=== PATIENT | female | born 1955 | race Caucasian/White ===

== ENCOUNTER 2023-07-15 15:23 | Inpatient (IN) ==
[2023-07-15 16:13] LABS: Basophils # (auto) 0.07 K/uL (0.00-0.20); Basophils % (auto) 0.6 %; Eosinophils # (auto) 0.02 K/uL (0.00-0.50); Eosinophils % (auto) 0.2 %; Hematocrit (blood only) 43.1 % (37.0-47.0); Hemoglobin 12.9 g/dl (12.0-16.0); Immature Granulocytes # (auto) 0.33 K/uL (0.01-0.20); Immature Granulocytes % (auto) 2.8 %; Lymphocytes # (auto) 1.37 K/uL (1.20-3.40); Lymphocytes % (auto) 11.6 %; Mean Corpuscular Hemoglobin 29.1 pg (25.0-34.0); Mean Corpuscular Hgb Conc 29.9 g/dL (32.0-36.0); Mean Corpuscular Volume 97.3 fL (80.0-100.0); Mean Platelet Volume 9.1 fL (9.4-12.4); Monocytes # (auto) 0.76 K/uL (0.11-0.59); Monocytes % (auto) 6.5 %; Neutrophils # (auto) 9.22 K/uL (1.40-6.50); Neutrophils % (auto) 78.3 %; Platelet Count 305 K/uL (130-400); RDW Coefficient of Variation 18.8 % (11.5-14.5); RDW Standard Deviation 68.5 fL (36.4-46.3); Red Blood Count 4.43 M/uL (4.20-5.40); White Blood Count 11.77 K/ul (4.8-10.8)
[2023-07-15 16:18] LABS: Albumin Globulin Ratio 1.3 (0.9-2); Albumin Level 3.5 gm/dl (3.4-5.0); BUN Creatinine Ratio 23.9 (10-20); Bilirubin,Total 0.2 mg/dl (0.2-1.0); Calcium 8.5 mg/dl (8.6-10.3); Creatinine Clr Calc Pharmacy 20.6 ml/min; Est GFR (African American) 25.7 ml/min; Est GFR (Non-African American) 22.2 ml/min; Globulin 2.6 gm/dl (2.5-4.0); Total Protein 6.1 gm/dl (6.0-8.3)
--- NOTE | 2023-07-15 16:18 | XRay Report ---
SINGLE VIEW CHEST CLINICAL HISTORY: Cough FINDINGS: An AP, portable, upright chest radiograph is compared to study dated 11/26/2022. Correlation is made with chest CT dated 11/21/2022. The hiatal hernia is noted. The patient is status post midlin e sternotomy and cardiac valve surgery. The heart is enlarged noting atherosclerotic calcification of the thoracic aorta. The pulmonary vasculature is noncongested. There is mild bibasilar scarring/atel ectasis. The lungs and pleural spaces are otherwise clear. No pneumothorax is seen. The skeletal stru ctures are osteopenic. The bony thorax is grossly intact. A right shoulder arthroplasty is in place. IMPRESSION: 1. Cardiomegaly with no active disease in the chest. 2. Hiatal hernia. ACT 112: Negative or not required by law. Electronically signed by: Nathan Moreau M.D. 07/15/2023 4:16 PM
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
[2023-07-15] MEDS: DEXTROSE 50% 50 ML SYRINGE IV STA (16:32)
[2023-07-15] MEDS: INSULIN HUMAN REGULAR PER UNIT 10 UNITS in SYRINGE 9.9 ML IV STA (16:33)
[2023-07-15] MEDS: STAT IV/IM STA (16:33)
[2023-07-15] MEDS: NovoLIN-R INSULIN PER UNIT CHARGE ONE (16:33)
[2023-07-15 16:51] LABS: INR 2.6 (0.9-1.1); Partial Thromboplastin Ratio 1.2; Partial Thromboplastin Time 33 Seconds (21-31); Prothrombin Time 27.3 Seconds (9.0-12.0)
--- NOTE | 2023-07-15 16:58 | CT Scan Report ---
CT OF THE HEAD WITHOUT CONTRAST CLINICAL HISTORY: Altered mental status. COMPARISON STUDY: Head CT December 21, 2022. TECHNIQUE: Helical axial images of the head were obtained without IV contrast. Automated exposure con trol was utilized for the study. A dose lowering technique was utilized adhering to the principles o f ALARA. FINDINGS: No acute intracranial hemorrhage, midline shift or mass effect is present. Extensive white matter hypodensities are similar to prior head CT and favor small vessel disease. The ventricular sys tem is unremarkable. The basal cisterns are patent. No extra-axial collections are present. There are no findings to suggest acute dural sinus thrombosis or acute territorial infarct. There are no duc rial fractures. There is mild ethmoid sinus mucosal thickening. IMPRESSION: No acute intracranial findings. No change in appearance of the brain. ACT 112: Negative or not required by law. Electronically signed by: Den Monzon M.D. 07/15/2023 4:57 PM
[2023-07-15] MEDS: CALCIUM GLUCONATE 10% 1,000 MG in SODIUM CHLOR 0.9% MINI-B 50 ML IV ONE (16:59)
[2023-07-15] MEDS: CALCIUM GLUCONATE 1000 MG/60 ML NSS IV ONE (17:01)
--- NOTE | 2023-07-15 17:05 | CT Scan Report ---
CT OF THE ABDOMEN AND PELVIS WITHOUT CONTRAST CLINICAL HISTORY: Acute kidney injury. COMPARISON STUDY: CT of the abdomen and pelvis September 30, 2022. TECHNIQUE: Axial images of the abdomen and pelvis were obtained without IV contrast. Images were revi ewed in the axial, sagittal, and coronal planes. Automated exposure control was utilized for the rimma dy. A dose lowering technique was utilized adhering to the principles of ALARA. FINDINGS: Lung bases are unremarkable. A large hiatal hernia with partially intrathoracic stomach is partially imaged on this exam. No pneumatosis, free air or portal venous gas is present. There is a 3 mm left renal calculus. No ureteral calculi are present. There is no hydronephrosis. Evaluation of t he remainder of the abdomen and pelvis is suboptimal on this unenhanced exam. Liver, spleen, adrenal glands and pancreas are unremarkable. There is no biliary or pancreatic ductal dilatation. No peripan creatic or pericholecystic stranding is present. There is no evidence for a bowel obstruction. No lym phadenopathy is present. There are no fluid collections. There is a mild compression fracture of the inferior endplate of L1. This is new since CT of October 02, 2022 but probably chronic. IMPRESSION: 1. 3 mm nonobstructing left renal calculus. No ureteral calculi. No hydronephrosis. 2. No acute process within the abdomen or pelvis on unenhanced exam. No bowel obstruction. 3. Mild L1 compression fracture. This is new since CT of October 02, 2022 but probably chronic. ACT 112: Negative or not required by law. Electronically signed by: Den Monzon M.D. 07/15/2023 5:04 PM
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
[2023-07-15 18:08] LABS: Appearance Urine Cloudy (Clear); Bacteria Urine Automated Negative (Negative); Bilirubin Urine Negative (Negative); Blood Urine Negative (Negative); Color Urine Yellow; Epithelial Cell Urine Auto >30 /lpf (0-5); Glucose Urine UA 3+ (Negative); Ketones Urine Negative (Negative); Leukocyte Esterase Urine 2+ (Negative); Nitrite Urine Negative (Negative); Protein Urine Negative (Negative); RBC Urine Automated 0-4 /hpf (0-4); Specific Gravity Urine 1.015 (1.000-1.030); Urobilinogen Urine Negative (Negative)
[2023-07-15] MEDS: SODIUM CHLORIDE 0.9% 1,000 ML IV SCH (18:54)
[2023-07-15] MEDS: LACTATED RINGER'S 1,000 ML IV SCH (18:55)
[2023-07-15 19:06] LABS: Magnesium 2.6 mg/dl (1.7-2.4)
[2023-07-15] MEDS ORDERED: DAPTOmycin 200 MG in SYRINGE 0 ML IV SCH (19:45)
[2023-07-15 19:56] LABS: Calcium 8.9 mg/dl (8.6-10.3); Creatinine Clr Calc Pharmacy 22.4 ml/min; Est GFR (African American) 28.5 ml/min; Est GFR (Non-African American) 24.6 ml/min; Potassium 5.8 mmol/L (3.5-5.1)
[2023-07-15] MEDS: DAPTOmycin 200 MG in SYRINGE 0 ML IV SCH (20:17)
[2023-07-15] MEDS ORDERED: ACETAMINOPHEN 325 MG TAB PO PRN (21:27)
[2023-07-15] MEDS ORDERED: GLUCOSE 10 TAB/TUBE PO PRN (21:27)
[2023-07-15] MEDS ORDERED: GLUCOSE 40% GEL 15 GM TUBE PO PRN (21:27)
[2023-07-15] MEDS ORDERED: GLUCAGON FOR INJ 1 MG VIAL SQ PRN (21:27)
[2023-07-15] MEDS ORDERED: ONDANSETRON INJ 2 MG/ML 2 ML VIAL IV PRN (21:27)
[2023-07-15] MEDS ORDERED: DEXTROSE 50% 50 ML SYRINGE IV PRN (21:27)
[2023-07-15] MEDS: INSULIN ASPART PER UNIT CHARGE SC SCH (22:34)
[2023-07-15] MEDS: METOPROLOL SUCC 50MG EXT REL TAB PO SCH (22:35)
[2023-07-15] MEDS: LANTUS PER UNIT CHARGE SQ SCH (22:35)
[2023-07-15] MEDS: ATORVASTATIN 10 MG TAB PO SCH (22:36)
[2023-07-15] MEDS: VALSARTAN/SACUBITRIL 51/49 MG TAB PO SCH (22:36)
[2023-07-16 00:02] LABS: BUN Creatinine Ratio 26.2 (10-20); Calcium 8.7 mg/dl (8.6-10.3); Creatinine Clr Calc Pharmacy 22.2 ml/min; Est GFR (African American) 28.2 ml/min; Est GFR (Non-African American) 24.3 ml/min; Potassium 5.6 mmol/L (3.5-5.1)
[2023-07-16 04:05] LABS: Basophils # (auto) 0.05 K/uL (0.00-0.20); Basophils % (auto) 0.5 %; Eosinophils # (auto) 0.04 K/uL (0.00-0.50); Eosinophils % (auto) 0.4 %; Hematocrit (blood only) 38.5 % (37.0-47.0); Hemoglobin 11.5 g/dl (12.0-16.0); Immature Granulocytes # (auto) 0.22 K/uL (0.01-0.20); Immature Granulocytes % (auto) 2.2 %; Lymphocytes # (auto) 1.11 K/uL (1.20-3.40); Lymphocytes % (auto) 11.3 %; Mean Corpuscular Hgb Conc 29.9 g/dL (32.0-36.0); Mean Corpuscular Volume 97.2 fL (80.0-100.0); Mean Platelet Volume 8.9 fL (9.4-12.4); Monocytes # (auto) 0.68 K/uL (0.11-0.59); Monocytes % (auto) 6.9 %; Neutrophils # (auto) 7.73 K/uL (1.40-6.50); Neutrophils % (auto) 78.7 %; Platelet Count 240 K/uL (130-400); RDW Standard Deviation 68.1 fL (36.4-46.3); Red Blood Count 3.96 M/uL (4.20-5.40); White Blood Count 9.83 K/ul (4.8-10.8)
[2023-07-16 04:18] LABS: BUN Creatinine Ratio 26.9 (10-20); Calcium 8.5 mg/dl (8.6-10.3); Creatinine Clr Calc Pharmacy 24.6 ml/min; Est GFR (African American) 31.9 ml/min; Est GFR (Non-African American) 27.5 ml/min; Potassium 5.3 mmol/L (3.5-5.1)
[2023-07-16 04:33] LABS: INR 2.2 (0.9-1.1); Prothrombin Time 23.4 Seconds (9.0-12.0)
[2023-07-16] MEDS: LEVOTHYROXINE SODIUM 112 MCG TABLET PO SCH (06:05)
[2023-07-16] MEDS: ARIPIprazole 1 MG/ML ORAL SOLN 150 ML BTL PO SCH (08:41)
[2023-07-16] MEDS: FUROSEMIDE 40 MG TAB PO SCH (08:41)
[2023-07-16] MEDS: ASPIRIN 81 MG ECTAB PO SCH (08:41)
[2023-07-16] MEDS: CITALOPRAM 20 MG TAB PO SCH (08:41)
[2023-07-16] MEDS: buPROPion XL 300 MG TABCR PO SCH (08:41)
[2023-07-16] MEDS: PANTOprazole 40 MG TAB PO SCH (08:42)
[2023-07-16] MEDS: VIBEGRON 75 MG TAB PO SCH (08:42)
[2023-07-16] MEDS: SPIRONOLACTONE 25 MG TAB PO SCH (08:42)
[2023-07-16 09:47] LABS: BUN Creatinine Ratio 29.4 (10-20); Calcium 8.4 mg/dl (8.6-10.3); Creatinine Clr Calc Pharmacy 28.6 ml/min; Est GFR (African American) 38.2 ml/min; Potassium 5.6 mmol/L (3.5-5.1)
[2023-07-16] MEDS: SODIUM ZIRCONIUM CYCLOSILICATE 10 GM PACKET PO ONE (10:00)
[2023-07-16] MEDS ORDERED: SODIUM ZIRCONIUM CYCLOSILICATE 10 GM PACKET PO ONE (11:00)
--- NOTE | 2023-07-16 11:22 | XRay Report ---
LEFT KNEE 2 VIEWS HISTORY: wound infection left knee COMPARISON: None. FINDINGS: There is no fracture or dislocation. There is a left total knee arthroplasty. The hardware is intact. No abnormal periprosthetic lucency. No significant knee effusion. Mild anterior soft tissu e swelling. Vascular calcifications are noted. No bony destructive changes to suggest an osteomyeliti s. IMPRESSION: 1. Mild anterior soft tissue swelling within the left knee. 2. Left total knee arthroplasty. The hardware is intact. ACT 112: Negative or not required by law. Electronically signed by: George Mathews M.D. 07/16/2023 11:21 AM
--- NOTE | 2023-07-16 11:36 | Electrocardiogram Report ---
Test Reason : Blood Pressure : / mmHG Vent. Rate : 061 BPM Atrial Rate : 061 BPM P-R Int : 152 ms QRS Dur : 084 ms QT Int : 426 ms P-R-T Axes : 040 -12 007 degrees QTc Int : 428 ms Normal sinus rhythm Moderate voltage criteria for LVH, may be normal variant ( R in aVL ) Nonspecific ST abnormality Abnormal ECG No previous ECGs available Confirmed by Damaso Palma ([id number]) on 07/16/2023 11:35:50 AM Referred By: REFERRED SELF Confirmed By:Damaso Palma
--- NOTE | 2023-07-16 12:02 | Magnetic Resonance Report ---
Brain MRI WITHOUT CONTRAST HISTORY: dizziness,blurred vision,rule out CVA TECHNIQUE: Multiplanar multisequence MRI of the brain was performed without the use of contrast. COMPARISON STUDY: Head CT 07/15/2023. FINDINGS: Scattered areas of increased signal within the DWI sequences appear to represent T2 shine t hrough. No definite areas restricted diffusion to suggest an acute infarction. The midline structures are intact. Mild mucosal thickening within the ethmoid air cells and left maxillary sinus. The masto id air cells are clear. The major vascular flow-voids at the skull base are well-maintained. The vent ricles and sulci demonstrate mild age-related involutional changes. There is no mass, hematoma, midli ne shift. The orbits are unremarkable. Extensive white matter T2 hyperintensity within the supratento rial and infratentorial brain which is greater than expected for the patient's age. There are few add itional small foci of encephalomalacia within the frontal lobes at the high convexity and left occipi kishan lobe consistent with old small infarcts. IMPRESSION: 1. No acute infarct or intracranial hemorrhage. 2. Extensive white matter T2 hyperintensity which is similar to the prior CT examinations. This is gr eater than expected for the patient's age and could be due to advanced microvascular ischemic change, a demyelinating disease, Lyme disease, or a chronic leukodystrophy. 3. A few old small infarcts as described above. ACT 112: Negative or not required by law. Electronically signed by: George Mathews M.D. 07/16/2023 12:00 PM
[2023-07-16 16:11] LABS: Calcium 8.4 mg/dl (8.6-10.3); Creatinine Clr Calc Pharmacy 27.1 ml/min; Est GFR (African American) 35.8 ml/min; Est GFR (Non-African American) 30.9 ml/min; Potassium 4.7 mmol/L (3.5-5.1)
[2023-07-16] MEDS: WARFARIN SOD 4 MG TAB PO SCH (16:13)
[2023-07-16] MEDS: WARFARIN SOD 0.5 MG TAB PO SCH (16:13)
--- NOTE | 2023-07-16 18:53 | Hospitalist Progress Note ---
Date of Service July 16, 2023 Assessment & Plan (1) Ambulatory dysfunction: Plan: Presented with blurry vision, difficulties with balance since Tuesday 07/11 Per patient's sister, there has been no acute change in her ambulatory function over the past week No slurred speech, unilateral deficits, or facial droop noted Head CT negative Ordered brain MRI-shows old CVAs but nothing new/acute Hx of falls-PT/OT pending Patient recently moved to [facility], and reports she has been sliding to the floor. Suspect possibly from renal failure and/or febrile illness-infectious workup below, renal failure improving with IV fluids No arrhythmias on telemetry EKG NSR at 61 bpm; QTc 428 Fall precautions (2) Hyperkalemia: Plan: K 6.0-->5.8 on arrival Calcium gluconate and insulin given in the ED and potassium slightly improved today but remains elevated at 5.6 Likely secondary to Bactrim use and acute kidney injury, spironolactone use and potassium supplemental use Unfortunately, she was given her spironolactone, Lasix, and Entresto this morning-hold all of these medications Continue IV fluids Give Lokelma x 1, insulin as needed for blood sugars will also help Changed to low potassium diet and hold home potassium supplements Follow BMP this afternoon and again in the morning Discontinued Bactrim (3) TE (acute kidney injury): Plan: BUN 53, creatinine 2.22 (baseline 1.24) on arrival A/P CT revealed 3 mm nonobstructing left renal calculus; no hydronephrosis; no bowel obstruction; mild L1 compression fracture Likely secondary to recent Bactrim use in the setting of Lasix, spironolactone, and Entresto use Elevated BUN/creatinine ratio 23.9; may also be prerenal due to hypoperfusion of the kidneys due to dehydration Creatinine improving today to 1.6 Avoid nephrotoxic agents Continue IVF; LR @ 80mL/hr Continue to follow BMP, urine output (4) Wound infection: Plan: History of diabetic leg ulcers as well as left knee wound over lying total knee arthroplasty; patient follows with wound clinic outpatient Wound nurse consulted-recommend Tubigrip's Daily wound care Mild leukocytosis at 11.77; also febrile at 38.1 C in ED. No other cause for fever found and no other symptoms-COVID not tested. UA negative for infection Acetaminophen as needed for fever/pain Wound culture on 2/2/24 revealed MRSA (patient was placed on Bactrim outpatient) Hold Bactrim and continue daptomycin 4 mg/kg IV renally dosed q48h Check blood cultures and monitor for further fevers (5) Paroxysmal atrial fibrillation: Plan: In NSR here Patient is on Coumadin, however she recently had 2 doses withheld due to Bactrim use Given Bactrim is been discontinued, we can return her to her regular warfarin dosing: Warfarin Dose: 4.5 mg Tues Wed and 3 mg x 5 days (held doses on 07/09 and 07/12) Total mg/wk: 24 mg/wk Trend daily PT/INR and adjust regimen as needed-INR therapeutic today at 2.2 Continue metoprolol (6) Type 2 diabetes mellitus: Plan: Last A1c at 8.1% on 06/21/2023 Hold metformin, empagliflozin especially in light of TE Patient normally takes Lantus 15u BID Lantus 5 u BID while inpatient but with some hypoglycemia after treatment with IV insulin for hyperkalemia T2DM diet BSG ACHS Adjust regimen as needed (7) Hypertension: Plan: Metoprolol (8) HFrEF (heart failure with reduced ejection fraction): Plan: hold Lasix and potassium, hold Entresto, aldactone, empagliflozin euvolemic to hypovolemic (9) Thyroid cancer: Plan: S/p thyroidectomy continue LT4 supplementation, follows with Endo Plan Disposition: Admit to [facility] with telemetry DNR/DNI T2DM diet VTE PPx: On Coumadin Admission and Anticipated Discharge Date Admission Date: July 15, 2023 Subjective Patient reports feeling well. No further dizziness. Not having any pain in the knee and feels the wound is healing. Telemetry with normal sinus rhythm with rates in the 60s to 70s Physical Exam Constitutional: WD/WN, vitals as above Respiratory: normal respiratory effort, lungs clear to auscultation Cardiovascular: RRR, no murmur, no edema Gastrointestinal (Abdomen): normal bowel sounds, soft, nontender, no hepatosplenomegaly Musculoskeletal: Extremities: + extremities abnormal to inspection (Bilateral knee incisional scars) Skin: Wound on left knee and right elbow and right knee covered with dressings not removed Psychiatric: A+Ox3, euthymic affect Results & Data Results & Data Vital Signs (Past 12 Hours) Vital Signs Temp Pulse Pulse Pulse Resp BP Pulse Ox 07/16/23 15:14 36.4 C L 63 18 100/63 95 07/16/23 14:00 63 07/16/23 08:25 36.5 C 59 L 20 116/69 99 07/16/23 08:20 61 07/16/23 08:00 O2 Del Method 07/16/23 15:14 Room Air 07/16/23 14:00 07/16/23 08:25 Room Air 07/16/23 08:20 07/16/23 08:00 Room Air Laboratory Results CBC, BMP and repeat BMP reviewed PG Care Time/CCT Total # of Minutes Spent Total Time Spent with Patient: Total time spent is greater than 50% in coordination of care (as documented) at patient's floor/unit and/or counseling patient: Coding Level of Care Code 81977 SUB INP/OBS CARE 3/50MIN Diagnoses Ambulatory dysfunction R26.2 Hyperkalemia E87.5 TE (acute kidney injury) N17.9 Wound infection T14.8XXA; L08.9 Paroxysmal atrial fibrillation I48.0 Type 2 diabetes mellitus with hyperglycemia, with long-term current use of insulin E11.65; Z79.4 Diabetes mellitus complication status: with hyperglycemia Diabetes mellitus senior living insulin use: with senior living use Hypertension I10 HFrEF (heart failure with reduced ejection fraction) I50.20 Thyroid cancer C73 (6) Type 2 diabetes mellitus Diabetes mellitus complication status: with hyperglycemia Diabetes mellitus terminal operations supervisor insulin use: with senior living use Qualified Code(s): E11.65 - Type 2 diabetes mellitus with hyperglycemia; Z79.4 - exterminator (current) use of insulin
[2023-07-16] MEDS: MELATONIN 3 MG TAB PO PRN (21:51)
[2023-07-17] MEDS: CARBOHYDRATES FOR HYPOGLYCEMIA PO PRN (08:16)
[2023-07-17 08:42] LABS: BUN Creatinine Ratio 28.7 (10-20); Calcium 8.4 mg/dl (8.6-10.3); Creatinine Clr Calc Pharmacy 32.7 ml/min; Est GFR (African American) 46.6 ml/min; Est GFR (Non-African American) 40.2 ml/min; Potassium 4.5 mmol/L (3.5-5.1)
[2023-07-17 08:46] LABS: Basophils # (auto) 0.03 K/uL (0.00-0.20); Basophils % (auto) 0.4 %; Eosinophils # (auto) 0.01 K/uL (0.00-0.50); Eosinophils % (auto) 0.1 %; Hemoglobin 11.2 g/dl (12.0-16.0); Immature Granulocytes # (auto) 0.18 K/uL (0.01-0.20); Immature Granulocytes % (auto) 2.2 %; Lymphocytes # (auto) 0.97 K/uL (1.20-3.40); Lymphocytes % (auto) 11.9 %; Mean Corpuscular Hemoglobin 28.5 pg (25.0-34.0); Mean Corpuscular Hgb Conc 29.5 g/dL (32.0-36.0); Mean Corpuscular Volume 96.7 fL (80.0-100.0); Monocytes # (auto) 0.43 K/uL (0.11-0.59); Monocytes % (auto) 5.3 %; Neutrophils # (auto) 6.53 K/uL (1.40-6.50); Neutrophils % (auto) 80.1 %; Platelet Count 222 K/uL (130-400); RDW Coefficient of Variation 18.5 % (11.5-14.5); RDW Standard Deviation 65.7 fL (36.4-46.3); Red Blood Count 3.93 M/uL (4.20-5.40); White Blood Count 8.15 K/ul (4.8-10.8)
[2023-07-17 08:53] LABS: INR 1.3 (0.9-1.1); Prothrombin Time 14.4 Seconds (9.0-12.0)
[2023-07-17] MEDS: ALBUTEROL 0.083% NEBU SOLN 3 ML VIAL NEB STA (10:34)
[2023-07-17] MEDS: FUROSEMIDE 40 MG TAB PO SCH (13:04)
--- NOTE | 2023-07-17 15:00 | Hospitalist Progress Note ---
Date of Service July 17, 2023 Assessment & Plan (1) Ambulatory dysfunction: Plan: Presented with blurry vision, difficulties with balance since Tuesday 07/11 Per patient's sister, there has been an acute change in her ambulatory function over the past week No slurred speech, unilateral deficits, or facial droop noted Head CT negative Ordered brain MRI-shows old CVAs but nothing new/acute Hx of falls-PT/OT ordered and recommends rehab placement Patient recently moved to [facility], and reports she has been sliding to the floor. Suspect likely from renal failure and/or febrile illness/RSV-infectious workup below, renal failure improving with IV fluids No arrhythmias on telemetry EKG NSR at 61 bpm; QTc 428 Fall precautions (2) Hyperkalemia: Plan: K 6.0-->5.8 on arrival Calcium gluconate and insulin given in the ED and potassium remained elevated at 5.6 Likely secondary to Bactrim use and acute kidney injury, spironolactone use and potassium supplemental use Held spironolactone, Lasix, and Entresto and gave IVFs, Lokelma x 1--> K+ now normal Insulin as needed for blood sugars will also help lower K+ Changed to low potassium diet and continue to hold home potassium supplements Follow BMP Discontinued Bactrim Ok to resume home po lasix to prevent volume overload (3) URI (upper respiratory infection): Plan: secondary to RSV which likely caused her fever on admission, cough, wheezing Add Duonebs qid supportive care (4) RSV (acute bronchiolitis due to respiratory syncytial virus): Plan: as above cause of her fever, cough, wheeze (5) TE (acute kidney injury): Plan: BUN 53, creatinine 2.22 (baseline 1.24) on arrival A/P CT revealed 3 mm nonobstructing left renal calculus; no hydronephrosis; no bowel obstruction; mild L1 compression fracture Likely secondary to recent Bactrim use in the setting of Lasix, spironolactone, and Entresto use Creatinine continues to improve to 1.3 Avoid nephrotoxic agents No further IVFs needed, resuming home lasix Continue to follow BMP, urine output (6) (HFpEF) heart failure with preserved ejection fraction: Plan: ECHO from 05/2023 with low normal EF 50-55%, grade 2 diastolic dysfunction, moderate MR,TR, and mild-moderate AI Review of old Cardiology records from [place] report HFpEF and no history of reduced LVEF She has a long h/o peripheral edema and venous stasis with ulcers Held Lasix, potassium, Entresto, aldactone, empagliflozin due to TE euvolemic but with wheezing, resumed lasix resume Entresto likely tomorrow Strict I/Os, daily weights (7) Wound infection: Plan: History of diabetic leg ulcers as well as left knee wound over lying total knee arthroplasty; patient follows with wound clinic outpatient Wound culture on 07/02/23 revealed MRSA and patient was placed on Bactrim outpatient--> developed LISS, hyperkalemia Now on Dapto to finish out 2 week course given underlying total knee arthroplasty Mild leukocytosis at 11.77; also febrile at 38.1 C in ED now known to be from RSV Blood cxs remain NGTD and left knee wound appears to be healing, no longer infected Wound nurse consulted-recommended Tubigrips but not placed before the weekend Daily wound care (8) Paroxysmal atrial fibrillation: Plan: In NSR here on tele Continue Coumadin at usual doses-recently had 2 doses withheld due to Bactrim use and now INR subtherapeutic at 1.3 Coumadin Dose: 4.5 mg Tues Wed and 3 mg x 5 days (held doses on 07/09 and 07/12) Follow PT/INR Consider transition to Eliquis Continue metoprolol (9) Type 2 diabetes mellitus: Plan: Last A1c at 8.1% on 06/21/2023 Hold metformin, empagliflozin due to TE Home Lantus 15u BID Lantus 5 u BID was started here while inpatient but with some hypoglycemia after treatment with IV insulin for hyperkalemia---> HOLD Lantus Giving Novolog SSI only T2DM diet BSG ACHS Adjust regimen as needed (10) Hypertension: Plan: BPs controlled continue Metoprolol, restart lasix holding spironolactone, Entresto but could probably resume Entresto tomorrow if renal function remains back at baseline (11) Thyroid cancer: Plan: S/p thyroidectomy continue LT4 supplementation, follows with Endo (12) Major depressive disorder: Plan: continue home meds with Celexa, Wellbutrin, and Abilify (13) History of CVA (cerebrovascular accident): Plan: with a h/o PAF old CVAs in frontal and occipital lobes on MRI brain here continue ASA, COumadin, statin, BP control (14) CAD (coronary artery disease): Plan: s/p 3vCABG and mitral valve repair- no acute issues continue ASA, statin, metoprolol Plan Disposition: contibued stay on MedSurg with telemetry DNR/DNI VTE PPx: On Coumadin Discussed care with sister on phone on 07/17 Ready for discharge likely tomorrow to rehab if accepted Admission and Anticipated Discharge Date Admission Date: July 15, 2023 Subjective Pt having a cough today, some wheezing. Upon further questioning, reports having a sore throat and a mild runny nose for a few days prior to admission. I tested her with a Biofire and she was positive for RSV She felt improved after a Duoneb treatment and resuming her po lasix Tele with NSR, rates 60-70s Physical Exam Constitutional: WD/WN, vitals as above Respiratory: normal respiratory effort and + cough Auscultation: + wheezes (bilat, exp); no crackles and no rhonchi Cardiovascular: RRR, no murmur, no edema Gastrointestinal (Abdomen): normal bowel sounds, soft, nontender, no hepatosplenomegaly Musculoskeletal: Extremities: + extremities abnormal to inspection (Bilateral knee incisional scars, no erythema) Skin: left knee small healing wound, no drainage or surrounding erythema Psychiatric: A+Ox3, euthymic affect Results & Data Results & Data Vital Signs (Past 12 Hours) Vital Signs Temp Pulse Pulse Resp BP Pulse Ox O2 Del Method 07/17/23 11:16 36.6 C 61 18 119/78 97 Room Air 07/17/23 10:34 61 16 97 Room Air 07/17/23 07:51 36.6 C 71 18 122/77 98 Room Air 07/17/23 06:00 66 07/17/23 03:27 36.8 C 70 16 139/86 96 Room Air Laboratory Results CBC, BMP, INR, Viral BioFire reviewed BCxs NGTD PG Care Time/CCT Total # of Minutes Spent Total Time Spent with Patient: Total time spent is greater than 50% in coordination of care (as documented) at patient's floor/unit and/or counseling patient: Coding Level of Care Code 06812 SUB INP/OBS CARE 3/50MIN Diagnoses Ambulatory dysfunction R26.2 Hyperkalemia E87.5 URI (upper respiratory infection) J06.9 RSV (acute bronchiolitis due to respiratory syncytial virus) J21.0 TE (acute kidney injury) N17.9 (HFpEF) heart failure with preserved ejection fraction I50.30 Wound infection T14.8XXA; L08.9 Paroxysmal atrial fibrillation I48.0 Type 2 diabetes mellitus with hyperglycemia, with long-term current use of insulin E11.65; Z79.4 Diabetes mellitus complication status: with hyperglycemia Diabetes mellitus terminologist insulin use: with terminologist use Hypertension I10 Thyroid cancer C73 Major depressive disorder F32.9 History of CVA (cerebrovascular accident) Z86.73 CAD (coronary artery disease) I25.10 (9) Type 2 diabetes mellitus Diabetes mellitus complication status: with hyperglycemia Diabetes mellitus terminologist insulin use: with [facility] use Qualified Code(s): E11.65 - Type 2 diabetes mellitus with hyperglycemia; Z79.4 - predatory animal exterminator (current) use of insulin
[2023-07-17] MEDS: DAPTOmycin 200 MG in SYRINGE 0 ML IV SCH (15:11)
[2023-07-17] MEDS: WARFARIN SOD 3 MG TAB PO SCH (16:28)
[2023-07-17] MEDS: ALBUT/IPRATROP 3MG/0.5MG NEB 3 ML VIAL NEB PRN (16:47)
[2023-07-17 16:56] LABS: Adenovirus PCR Not Detected (NotDetected); Bordetella parapertussis PCR Not Detected (NotDetected); Bordetella pertussis PCR Not Detected (NotDetected); Chlamydia pneumoniae PCR Not Detected (NotDetected); Coronavirus 229E PCR Not Detected (NotDetected); Coronavirus CoV-2 (COVID19)PCR Not Detected (NotDetected); Coronavirus HKU1 PCR Not Detected (NotDetected); Coronavirus NL63 PCR Not Detected (NotDetected); Coronavirus OC43PCR Not Detected (NotDetected); Human Metapneumovirus PCR Not Detected (NotDetected); Influenza A PCR Not Detected (NotDetected); Influenza B PCR Not Detected (NotDetected); Mycoplasma pneumoniae PCR Not Detected (NotDetected); Parainfluenza Virus 1 PCR Not Detected (NotDetected); Parainfluenza Virus 2 PCR Not Detected (NotDetected); Parainfluenza Virus 3 PCR Not Detected (NotDetected); Parainfluenza Virus 4 PCR Not Detected (NotDetected); Respiratory Syncytial VirusPCR DETECTED (NotDetected); Rhinovirus/Enterovirus PCR Not Detected (NotDetected)
[2023-07-17] MEDS: ALBUT/IPRATROP 3MG/0.5MG NEB 3 ML VIAL NEB SCH (19:48)
[2023-07-18 06:53] LABS: Basophils # (auto) 0.04 K/uL (0.00-0.20); Basophils % (auto) 0.5 %; Eosinophils # (auto) 0.01 K/uL (0.00-0.50); Eosinophils % (auto) 0.1 %; Hematocrit (blood only) 36.7 % (37.0-47.0); Hemoglobin 10.9 g/dl (12.0-16.0); Immature Granulocytes # (auto) 0.35 K/uL (0.01-0.20); Immature Granulocytes % (auto) 4.3 %; Lymphocytes # (auto) 1.29 K/uL (1.20-3.40); Lymphocytes % (auto) 15.7 %; Mean Corpuscular Hemoglobin 28.8 pg (25.0-34.0); Mean Corpuscular Hgb Conc 29.7 g/dL (32.0-36.0); Mean Corpuscular Volume 96.8 fL (80.0-100.0); Mean Platelet Volume 8.6 fL (9.4-12.4); Monocytes # (auto) 0.46 K/uL (0.11-0.59); Monocytes % (auto) 5.6 %; Neutrophils # (auto) 6.08 K/uL (1.40-6.50); Neutrophils % (auto) 73.8 %; Platelet Count 222 K/uL (130-400); RDW Coefficient of Variation 18.6 % (11.5-14.5); RDW Standard Deviation 65.1 fL (36.4-46.3); Red Blood Count 3.79 M/uL (4.20-5.40); White Blood Count 8.23 K/ul (4.8-10.8)
[2023-07-18 07:13] LABS: BUN Creatinine Ratio 30.1 (10-20); Calcium 8.3 mg/dl (8.6-10.3); Creatinine Clr Calc Pharmacy 33.6 ml/min; Est GFR (African American) 47.8 ml/min; Est GFR (Non-African American) 41.3 ml/min; Potassium 4.7 mmol/L (3.5-5.1)
[2023-07-18 07:56] LABS: INR 1.5 (0.9-1.1); Prothrombin Time 15.6 Seconds (9.0-12.0)
--- NOTE | 2023-07-18 15:29 | Hospitalist Progress Note ---
Date of Service July 18, 2023 Assessment & Plan (1) Ambulatory dysfunction: Plan: Presented with blurry vision, difficulties with balance since Tuesday 07/11 Per patient's sister, there has been an acute change in her ambulatory function over the past week No slurred speech, unilateral deficits, or facial droop noted Head CT negative Brain MRI-shows old CVAs but nothing new/acute Hx of falls-PT/OT ordered and recommends rehab placement Patient recently moved to [facility], and reports she has been sliding to the floor. Suspect likely from renal failure and/or febrile illness from RSV Renal failure improved with IV fluids No arrhythmias on telemetry EKG NSR at 61 bpm; QTc 428 Fall precautions Improving (2) Hyperkalemia: Plan: K 6.0-->5.8 on arrival Calcium gluconate and insulin given in the ED and potassium remained elevated at 5.6 Likely secondary to Bactrim use and acute kidney injury, spironolactone and Entresto, potassium supplemental use Held spironolactone, Lasix, and Entresto and gave IVFs, Lokelma x 1--> K+ now normal Insulin as needed for blood sugars will also help lower K+ Changed to low potassium diet and continue to hold home potassium supplements Discontinued Bactrim Resumed home po lasix to prevent volume overload Resume Entresto tonight Follow BMP Continue to hold spironolactone (3) RSV (acute bronchiolitis due to respiratory syncytial virus): Plan: RSV likely caused her fever and weakness/ambulatory dysfunction on admission, with cough, wheezing, not hypoxic Continue Duonebs qid supportive care (4) TE (acute kidney injury): Plan: BUN 53, creatinine 2.22 (baseline 1.24) on arrival A/P CT revealed 3 mm nonobstructing left renal calculus; no hydronephrosis; no bowel obstruction; mild L1 compression fracture Likely secondary to recent Bactrim use in the setting of Lasix, spironolactone, and Entresto use Creatinine improved to 1.3 and stable after receiving IVFs initially and holding home meds Avoid nephrotoxic agents Stopped Bactrim-add to allergy list Have now resumed home lasix and will resume Entresto Continue to follow BMP, urine output (5) (HFpEF) heart failure with preserved ejection fraction: Plan: ECHO from 05/2023 with low normal EF 50-55%, grade 2 diastolic dysfunction, moderate MR,TR, and mild-moderate AI Review of old Cardiology records from [place] report HFpEF and no history of reduced LVEF She has a long h/o peripheral edema and venous stasis with ulcers Held Lasix, potassium, Entresto, aldactone, empagliflozin due to ET euvolemic but with wheezing, resumed lasix resume Entresto tonight Continue holding spironolactone and jardiance for now Strict I/Os, daily weights (6) Wound infection: Plan: History of diabetic leg ulcers as well as left knee wound over lying total knee arthroplasty; patient follows with wound clinic outpatient Wound culture on 07/02/23 revealed MRSA and patient was placed on Bactrim outpatient--> developed LISS, hyperkalemia Now on Dapto to finish out 2 week course given underlying total knee arthroplasty-last day of treatment 07/19/23 On admission with mild leukocytosis at 11.77; also febrile at 38.1 C in ED now known to be from RSV Blood cxs remain NGTD and left knee wound appears to be healing, no longer infected Wound nurse consulted-recommended Tubigrips but not placed before the weekend Daily wound care (7) Paroxysmal atrial fibrillation: Plan: Remains in NSR here on tele Continue Coumadin at usual doses-recently had 2 doses withheld due to Bactrim use and now INR remains subtherapeutic at 1.5 Coumadin Dose: 4.5 mg Tues Wed and 3 mg x 5 days (held doses on 07/09 and 07/12) Follow PT/INR Consider transition to Eliquis should discuss with her Painter Rough Continue metoprolol (8) Type 2 diabetes mellitus: Plan: Last A1c at 8.1% on 06/21/2023 Hold metformin, empagliflozin due to TE Home Lantus 15u BID Lantus 5 u BID was started here while inpatient but with some hypoglycemia after treatment with IV insulin for hyperkalemia---> HOLD Lantus Giving Novolog SSI only T2DM diet BSG ACHS Adjust regimen as needed (9) Hypertension: Plan: BPs controlled continue Metoprolol, restart lasix and Entresto holding spironolactone (10) Thyroid cancer: Plan: S/p recent thyroidectomy continue LT4 supplementation, follows with Endo (11) Major depressive disorder: Plan: continue home meds with Celexa, Wellbutrin, and Abilify (12) History of CVA (cerebrovascular accident): Plan: with a h/o PAF old CVAs in frontal and occipital lobes on MRI brain here continue ASA, COumadin, statin, BP control (13) CAD (coronary artery disease): Plan: s/p 3vCABG and mitral valve repair- no acute issues continue ASA, statin, metoprolol (14) Blepharitis: Plan: recently seen by [facility] for this resume home Cipro ophth gtts and erythromycin ointment Plan Disposition: continued stay on MedSurg with telemetry DNR/DNI VTE PPx: On Coumadin Discussed care with sister on phone on 07/17 Ready for discharge likely tomorrow to rehab at [facility] if they have a bed-no insurance auth needed Admission and Anticipated Discharge Date Admission Date: July 15, 2023 Anticipated date of discharge: 07/19/23 Subjective Pt still with non productive cough and wheezing. Feels the nebs help sometimes. No other concerns Physical Exam Constitutional: WD/WN, vitals as above Respiratory: normal respiratory effort, lungs clear to auscultation normal respiratory effort and + cough Auscultation: + wheezes (bilat, exp); no c rackles and no rhonchi Cardiovascular: RRR, no murmur, no edema Gastrointestinal (Abdomen): normal bowel sounds, soft, nontender, no hepatos plenomegaly Musculoskeletal: Extremities: + extremities abnormal to inspection (Bilateral knee incisional scars, no erythema) Psychiatric: A+Ox3, euthymic affect Results & Data Results & Data Vital Signs (Past 12 Hours) Vital Signs Temp Pulse Pulse Resp BP Pulse Ox O2 Del Method 07/18/23 14:13 72 18 96 Room Air 07/18/23 11:33 36.4 C L 67 18 126/74 100 Room Air 07/18/23 11:27 70 16 96 Room Air 07/18/23 08:30 Room Air 07/18/23 07:50 36.6 C 70 18 118/71 96 Room Air 07/18/23 07:30 78 07/18/23 07:20 63 18 97 Room Air Laboratory Results CBC, BMP, INR reviewed PG Care Time/CCT Total # of Minutes Spent Total Time Spent with Patient: Total time spent is greater than 50% in coordination of care (as documented) at patient's floor/unit and/or counseling patient: Coding Level of Care Code 58490 SUB INP/OBS CARE 2/35MIN Diagnoses Ambulatory dysfunction R26.2 Hyperkalemia E87.5 RSV (acute bronchiolitis due to respiratory syncytial virus) J21.0 TE (acute kidney injury) N17.9 (HFpEF) heart failure with preserved ejection fraction I50.30 Wound infection T14.8XXA; L08.9 Paroxysmal atrial fibrillation I48.0 Type 2 diabetes mellitus with hyperglycemia, with long-term current use of insulin E11.65; Z79.4 Diabetes mellitus complication status: with hyperglycemia Diabetes mellitus extermination supervisor insulin use: with extermination supervisor use Hypertension I10 Thyroid cancer C73 Major depressive disorder F32.9 History of CVA (cerebrovascular accident) Z86.73 CAD (coronary artery disease) I25.10 Blepharitis H01.009 (8) Type 2 diabetes mellitus Diabetes mellitus complication status: with hyperglycemia Diabetes mellitus shelter insulin use: with extermination supervisor use Qualified Code(s): E11.65 - Type 2 diabetes mellitus with hyperglycemia; Z79.4 - alf (current) use of insulin
[2023-07-18] MEDS: ERYTHROMYCIN OP OINT 5 MG/GM 3.5 GM TUBE OPB SCH (16:54)
[2023-07-18] MEDS: CIPROFLOXACIN HCL 0.3% OP SOLN 2.5 ML BTL OPB SCH (16:55)
[2023-07-19 08:24] LABS: BUN Creatinine Ratio 30.5 (10-20); Creatinine Clr Calc Pharmacy 35.2 ml/min; Est GFR (African American) 50.1 ml/min; Est GFR (Non-African American) 43.2 ml/min; Magnesium 2.3 mg/dl (1.7-2.4); Potassium 4.3 mmol/L (3.5-5.1)
[2023-07-19 10:32] LABS: INR 1.6 (0.9-1.1); Prothrombin Time 17.1 Seconds (9.0-12.0)
--- NOTE | 2023-07-19 13:35 | Discharge Summary ---
Date of Service July 19, 2023 Admission HPI Per Admitting Provider Marry is a 68-year-old female with PMH of T2DM, thyroid cancer, CVA, HFrEF, CAROLANN, paroxysmal A-fib, anxiety and depression, insomnia, GERD, and traumatic open wound of lower left extremity. She presented via EMS from [facility] for blurred vision and balance issues since Tuesday 07/11. Patient's sister is at the bedside and provides additional history. She reports that there has been an acute change in the patient's ambulatory function over the past week. The patient was living with her sister after having bypass surgery 5 to 6 months ago, but recently recently moved into [facility] as she was not strong enough to be home alone. She ambulates with a walker at baseline. Patient was found on the floor today 07/15; while sister reports that this was an unwitnessed fall, the patient reports that she slid onto the floor on purpose to get the nurses attention and she needed to use the bathroom. This is in the setting of recurrent falls; none of which have been witnessed. Patient denies LOC, head strike during any of these falls. Sister notes 1 fall on 06/28/2023, but was largely suspected due to the patient's low blood sugar at that time. Patient is currently following at the wound clinic for her diabetic leg ulcers, and has a right LE arterial ultrasound scheduled. Patient was recently on Bactrim for a wound culture that resulted with MRSA on 07/02. She was also told that it would cover her for a UTI at the time. She reports that she took all of her regular morning medications today. History of a prior CVA with mild residual left-sided deficits. ED course: NSS 1000 mL IV Calcium gluconate 1000 mg IV Insulin 10 units ROS: Patient endorses headache which started today, feeling off balance, cough due to recent cold-like symptoms, sore throat, nausea (alleviated by Tums), and tingling in her hands and toes since her thyroid surgery on 06/14/2023. Patient denies fever, chills, sweating, dizziness, lightheadedness, changes in vision, facial droop, slurred speech, chest pain, SOB, chest palpitations, cough, abdominal pain, vomiting, diarrhea, lower back pain, urinary symptoms, blood in the urine or stool, or burning with urination. Principal Diagnosis Acute bronchitis, acute on chronic kidney disease, hyperkalemia, ambulatory dysfunction Discharge Exam General-alert and oriented x3, no fevers, no chills HEENT-head atraumatic and normocephalic, pupils equal and reactive to light, extraocular muscles intact Neck-no lymphadenopathy or thyromegaly, trachea midline Chest-midline rhonchi. No inspiratory rales. Faint end expiratory wheezes. No dullness to percussion. Cardiac-regular rate and rhythm, normal S1 and S2 Abdomen-normal bowel sounds, nontender, no hepatosplenomegaly Extremities-no cyanosis, clubbing, or edema Neuro-cranial nerves II through XII intact, motor and sensory function within normal limits, strength symmetrical, no focal deficits Psych-normal affect, normal mood Discharge Data Allergies Allergy/AdvReac Type Severity Reaction Status Date / Time sulfamethoxazole AdvReac Intermediate Kidney Verified 07/18/23 18:09 [From Bactrim] failure trimethoprim [From Bactrim] AdvReac Intermediate Kidney Verified 07/18/23 18:09 failure doxycycline AdvReac Verified 07/15/23 14:34 Consultations 07/15/23 17:08 ED Decision to Admit Stat Ordered Studies 07/15/23 16:20 CT abd pelvis wo con Stat CT head/brain wo con Stat 07/16/23 09:01 MR brain wo con Urgent Hospital Course (1) Ambulatory dysfunction: Improved with OT and PT which will continue at [facility]. Fortunately, no current CVA (2) Hyperkalemia: Treated and resolved. Entresto has been discontinued. Avoid potassium supplements for now. I suspect the combination of the ARB in Entresto along with spironolactone and oral potassium supplements contributed to the acute problem, and probably Bactrim had little to do with it (3) RSV (acute bronchiolitis due to respiratory syncytial virus): RSV positive. This could be the cause of her bronchitic symptoms. Improved since admission with Duonebs qid. (4) TE (acute kidney injury): Now resolved. ARB has been discontinued indefinitely due to hyperkalemia present on admission. Spironolactone has also been discontinued. A/P CT revealed 3 mm nonobstructing left renal calculus; no hydronephrosis; no bowel obstruction; mild L1 compression fracture (5) (HFpEF) heart failure with preserved ejection fraction: ECHO from 05/2023 with low normal EF 50-55%, grade 2 diastolic dysfunction, moderate MR,TR, and mild-moderate AI. It does not appear that Entresto is needed in this patient. No overt CHF. Continue current medical management without Entresto, spironolactone, potassium supplements (6) Wound infection: History of diabetic leg ulcers as well as left knee wound over lying total knee arthroplasty; patient follows with wound clinic outpatient Wound culture on 07/02/23 revealed MRSA and patient was placed on Bactrim outpatient. This can be resumed now that she is off Entresto, spironolactone, oral potassium supplements. Treated with daptomycin through July 19. (7) Paroxysmal atrial fibrillation: Remains in NSR here on tele. Continue current medical management. Daily INR while hospitalized (8) Type 2 diabetes mellitus: Metformin held during this admission. ADA diet. Basal basal insulin therapy. (9) Hypertension: Stable. Continue current medical management. Spironolactone however has been discontinued as has Entresto. (10) Thyroid cancer: S/p recent thyroidectomy. Continue LT4 supplementation. Outpatient follow-up (11) Major depressive disorder: Stable on Celexa, Wellbutrin, and Abilify (12) History of CVA (cerebrovascular accident): Prior CVAs in frontal and occipital lobes on MRI brain here. Continue ASA, coumadin, statin, BP control (13) CAD (coronary artery disease): s/p 3vCABG and mitral valve repair. Stable. Continue ASA, statin, metoprolol Plan Discharge to [facility] July 19 Total Time Total Time Spent Total Time Spent (In Minutes): 45-minute Discharge Plan Discharge Items Patient Disposition: Transfer Inpatient Rehab Fac Reason For Visit: AMBULATORY DYSNFUNCTION, BLURRY VISION, OFF BALANC Discharge Diagnosis: Hyperkalemia, acute on chronic kidney disease, ambulatory dysfunction, RSV bronchitis Activity: Resume your previous activity Non-emergency contact: Primary Care Provider Call non-emergency contact if: you have any medication questions and your symptoms worsen Follow-up/Referrals: Zion Kelley DO [Primary Care Provider] - Diet: Carb Consistent or DM2 and Heart Healthy Addtl Attending Provider Instructions: Entresto and spironolactone have been discontinued. Potassium supplements have been discontinued. Take prednisone in a tapering dose fashion as directed and take Ceftin antibiotic for 1 week Pending Studies at Discharge: No Stand-Alone Forms: My [facility] Skilled Items Patient informed of condition?: Yes DNR: Yes Discharge Level of Care: Acute rehab Communicable Disease: No Discharge Prognosis: Stable Lines: None Urinary Catheter: No Medications and DC Order Prescriptions: New cefdinir 300 mg capsule 300 mg PO BID 5 Days Qty: 10 0RF prednisone 10 mg tablet See Rx Instructions .ROUTE .COMPLEX Qty: 12 0RF Rx Instructions: 10 mg orally 3 times a day for 2 days, then 10 mg twice a day for 2 days, then 10 mg once a day for 2 days, then stop warfarin [Jantoven] 4 mg Tablet 4 mg PO TuFr@1600 Qty: 0 0RF warfarin 3 mg Tablet 3 mg PO SuMoWeThSa@1600 Qty: 0 0RF Continued metformin 500 mg tablet 500 mg PO BID Qty: 60 3RF metoprolol succinate 50 mg tablet extended release 24 hr 50 mg PO BID Qty: 60 3RF Jardiance 10 mg tablet 10 mg PO DAILY Qty: 30 3RF aripiprazole 2 mg tablet 2 mg PO DAILY Qty: 30 3RF atorvastatin 10 mg tablet 10 mg PO QPM Qty: 30 3RF bupropion HCl 300 mg tablet extended release 24 hr 300 mg PO QAM Qty: 30 3RF citalopram 20 mg tablet 20 mg PO DAILY Qty: 30 3RF levothyroxine 112 mcg tablet 112 mcg PO DAILY Qty: 30 2RF calcium carbonate [Tums E-X] 300 mg (750 mg) tablet,chewable 600 mg PO BID Myrbetriq 25 mg tablet extended release 24 hr 50 mg PO DAILY aspirin 81 mg tablet,chewable 81 mg PO DAILY Qty: 30 3RF omeprazole 40 mg capsule,delayed release(DR/EC) 40 mg PO DAILY Qty: 30 3RF furosemide [Lasix] 40 mg tablet 40 mg PO DAILY Qty: 30 1RF sulfamethoxazole-trimethoprim 400-80 mg Tablet 1 tab PO BID insulin lispro [Humalog KwikPen Insulin] 100 unit/mL insulin pen 5 unit subcut .TIDM PLUS SS Rx Instructions: Hold if bsg below 100, 200-250=2units, 251-300= 4 units, 301-350=6units, >351=8units insulin glargine [Lantus Solostar U-100 Insulin] 100 unit/mL (3 mL) insulin pen 15 unit subcut AMPM multivitamin Tablet 1 tab PO QAM Discontinued spironolactone 25 mg tablet 25 mg PO DAILY Qty: 30 3RF Entresto 49-51 mg tablet 1 tab PO BID Qty: 60 3RF warfarin 3 mg tablet 0 mg PO DAILY Rx Instructions: as directed potassium chloride 20 mEq tablet extended release 20 meq PO DAILY ciprofloxacin HCl 0.3 % drops 1 drp OPB QID erythromycin 5 mg/gram (0.5 %) ointment 1 cm OPB TID Discharge Orders: Discharge Order (Routine); Ordered 07/19/23 Ordered By: Hoang Noonan Admission Data Admit Date/Time: 07/15/23 18:38 Attending Provider: Hoang Noonan Admit Provider: Terrance Kapadia Primary Care Provider: Zion Kelley Other Providers: Terrance Kapadia; [facility] Coding Level of Care Code 56713 INP/OBS DISCH >30 MIN Diagnoses Ambulatory dysfunction R26.2 Hyperkalemia E87.5 RSV (acute bronchiolitis due to respiratory syncytial virus) J21.0 TE (acute kidney injury) N17.9 (HFpEF) heart failure with preserved ejection fraction I50.30 Wound infection T14.8XXA; L08.9 Paroxysmal atrial fibrillation I48.0 Type 2 diabetes mellitus with hyperglycemia, with long-term current use of insulin E11.65; Z79.4 Diabetes mellitus continuous churn buttermaker insulin use: with continuous churn buttermaker use Diabetes mellitus complication status: with hyperglycemia Hypertension I10 Thyroid cancer C73 Major depressive disorder F32.9 History of CVA (cerebrovascular accident) Z86.73 CAD (coronary artery disease) I25.10
== END 2023-07-19 15:44 | DRG 683 ==
LOC: ED 15:23 → EDINP 18:38 → SUATTDRO 18:38 → 2N 21:27

== ENCOUNTER 2023-08-13 18:06 | Inpatient (IN) ==
--- NOTE | 2023-08-13 18:15 | ED Triage Note ---
Date of Service August 13, 2023 Provider in Triage Author: Mela White History of Present Illness This patient was briefly evaluated while in triage. An abbreviated physical exam was performed. This patient is a 68-year-old Female who presents to the ED for evaluation of swollen legs and weight gain of 7lbs over past couple days. Doctor sent her in. History of CHF, takes lasix, dose was increased but not helping. Having some BOSS, no chest pain. No dizziness or passing out. Physical Exam CONSTITUTIONAL: No acute distress. Well appearing. RESPIRATORY: Rhonchi and faint crackles in bases. Nonlabored breathing. Equal expansion bilaterally. CARDIOVASCULAR: Regular rate and rhythm. Bilateral pitting edema of the lower extremities. GASTROINTESTINAL: Soft, nontender. NEUROLOGIC: Alert and oriented X 4 with normal affect. Initial orders for labs and / or imaging were placed and patient was placed in the waiting area until a bed is available. Please see further documentation for the full ED course. MDM / Impression Impression Impression: CHF (congestive heart failure), Anticoagulated on Coumadin, Influenza A, BOSS (dyspnea on exertion), Lab test negative for COVID-19 virus
[2023-08-13 18:51] LABS: Basophils # (auto) 0.05 K/uL (0.00-0.20); Basophils % (auto) 0.6 %; Eosinophils # (auto) 0.02 K/uL (0.00-0.50); Eosinophils % (auto) 0.3 %; Hematocrit (blood only) 37.6 % (37.0-47.0); Hemoglobin 10.9 g/dl (12.0-16.0); Immature Granulocytes # (auto) 0.32 K/uL (0.01-0.20); Immature Granulocytes % (auto) 4.1 %; Lymphocytes # (auto) 1.83 K/uL (1.20-3.40); Lymphocytes % (auto) 23.6 %; Mean Corpuscular Hemoglobin 28.9 pg (25.0-34.0); Mean Corpuscular Volume 99.7 fL (80.0-100.0); Mean Platelet Volume 9.1 fL (9.4-12.4); Monocytes # (auto) 0.49 K/uL (0.11-0.59); Monocytes % (auto) 6.3 %; Neutrophils # (auto) 5.04 K/uL (1.40-6.50); Neutrophils % (auto) 65.1 %; Nucleated RBC # (auto) 0.21 K/uL (0.00-0.12); Nucleated RBC % (auto) 2.7 %; Platelet Count 439 K/uL (130-400); RDW Coefficient of Variation 18.6 % (11.5-14.5); RDW Standard Deviation 67.4 fL (36.4-46.3); Red Blood Count 3.77 M/uL (4.20-5.40); White Blood Count 7.75 K/ul (4.8-10.8)
[2023-08-13 19:09] LABS: Albumin Globulin Ratio 1.3 (0.9-2); Albumin Level 3.6 gm/dl (3.4-5.0); BUN Creatinine Ratio 22.6 (10-20); Bilirubin,Total 0.3 mg/dl (0.2-1.0); Calcium 8.6 mg/dl (8.6-10.3); Creatinine Clr Calc Pharmacy 43.6 ml/min; Est GFR (African American) 62.9 ml/min; Est GFR (Non-African American) 54.3 ml/min; Globulin 2.8 gm/dl (2.5-4.0); Potassium 3.8 mmol/L (3.5-5.1); Total Protein 6.4 gm/dl (6.0-8.3)
[2023-08-13 19:16] LABS: Troponin I High Sensitivity 22.1 pg/ml (0-14)
[2023-08-13 19:18] LABS: Ovalocytes 1+; Polychromasia 1+; Tear Drop Cells 1+
[2023-08-13 19:21] LABS: INR 1.9 (0.9-1.1); Partial Thromboplastin Ratio 1.1; Partial Thromboplastin Time 30 Seconds (21-31); Prothrombin Time 19.6 Seconds (9.0-12.0)
[2023-08-13 19:41] LABS: Adenovirus PCR Not Detected (NotDetected); Bordetella parapertussis PCR Not Detected (NotDetected); Bordetella pertussis PCR Not Detected (NotDetected); Chlamydia pneumoniae PCR Not Detected (NotDetected); Coronavirus 229E PCR Not Detected (NotDetected); Coronavirus CoV-2 (COVID19)PCR Not Detected (NotDetected); Coronavirus HKU1 PCR Not Detected (NotDetected); Coronavirus NL63 PCR Not Detected (NotDetected); Coronavirus OC43PCR Not Detected (NotDetected); Human Metapneumovirus PCR Not Detected (NotDetected); Influenza A (H1 2009) PCR DETECTED (NotDetected); Influenza B PCR Not Detected (NotDetected); Mycoplasma pneumoniae PCR Not Detected (NotDetected); Parainfluenza Virus 1 PCR Not Detected (NotDetected); Parainfluenza Virus 2 PCR Not Detected (NotDetected); Parainfluenza Virus 3 PCR Not Detected (NotDetected); Parainfluenza Virus 4 PCR Not Detected (NotDetected); Respiratory Syncytial VirusPCR Not Detected (NotDetected); Rhinovirus/Enterovirus PCR Not Detected (NotDetected)
[2023-08-13 19:56] LABS: Appearance Urine Clear (Clear); Bacteria Urine Automated Negative (Negative); Bilirubin Urine Negative (Negative); Blood Urine Negative (Negative); Color Urine Yellow; Epithelial Cell Urine Auto >30 /lpf (0-5); Glucose Urine UA 3+ (Negative); Ketones Urine Trace (Negative); Leukocyte Esterase Urine Trace (Negative); Nitrite Urine Negative (Negative); Protein Urine Trace (Negative); RBC Urine Automated 0-4 /hpf (0-4); Specific Gravity Urine 1.027 (1.000-1.030); Urobilinogen Urine Negative (Negative)
[2023-08-13] MEDS: FUROSEMIDE 40 MG/4 ML VIAL IV ONE (20:19)
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
[2023-08-14] MEDS ORDERED: ACETAMINOPHEN 325 MG TAB PO PRN (00:45)
[2023-08-14] MEDS ORDERED: DEXTROSE 50% 50 ML SYRINGE IV PRN (00:45)
[2023-08-14] MEDS ORDERED: ONDANSETRON INJ 2 MG/ML 2 ML VIAL IV PRN (00:45)
[2023-08-14] MEDS ORDERED: GLUCOSE 10 TAB/TUBE PO PRN (00:45)
[2023-08-14] MEDS ORDERED: CARBOHYDRATES FOR HYPOGLYCEMIA PO PRN (00:45)
[2023-08-14] MEDS ORDERED: GLUCAGON FOR INJ 1 MG VIAL SQ PRN (00:45)
[2023-08-14] MEDS ORDERED: GLUCOSE 40% GEL 15 GM TUBE PO PRN (00:45)
[2023-08-14] MEDS: WARFARIN SOD 3 MG TAB PO SCH (01:35)
[2023-08-14] MEDS: WARFARIN SOD 0.5 MG TAB PO SCH (01:35)
[2023-08-14] MEDS: LEVOTHYROXINE SODIUM 100 MCG TABLET PO SCH (05:33)
[2023-08-14 07:37] LABS: Hematocrit (blood only) 32.8 % (37.0-47.0); Hemoglobin 9.6 g/dl (12.0-16.0); Mean Corpuscular Hemoglobin 28.7 pg (25.0-34.0); Mean Corpuscular Hgb Conc 29.3 g/dL (32.0-36.0); Mean Corpuscular Volume 98.2 fL (80.0-100.0); Mean Platelet Volume 8.9 fL (9.4-12.4); Nucleated RBC # (auto) 0.06 K/uL (0.00-0.12); Nucleated RBC % (auto) 0.8 %; Platelet Count 404 K/uL (130-400); RDW Coefficient of Variation 18.4 % (11.5-14.5); RDW Standard Deviation 65.3 fL (36.4-46.3); Red Blood Count 3.34 M/uL (4.20-5.40); White Blood Count 7.16 K/ul (4.8-10.8)
[2023-08-14 07:53] LABS: BUN Creatinine Ratio 24.7 (10-20); Calcium 8.5 mg/dl (8.6-10.3); Creatinine Clr Calc Pharmacy 49.3 ml/min; Est GFR (African American) 73.7 ml/min; Est GFR (Non-African American) 63.6 ml/min; Potassium 3.8 mmol/L (3.5-5.1)
[2023-08-14 08:08] LABS: Thyroid Stimulating Hormone 1.203 uIu/ml (0.300-4.500)
[2023-08-14] MEDS: ASPIRIN 81 MG CHEW PO SCH ×2 (08:18→08:28)
[2023-08-14] MEDS: ARIPIprazole 1 MG/ML ORAL SOLN 150 ML BTL PO SCH ×2 (08:19→08:30)
[2023-08-14] MEDS: CITALOPRAM 20 MG TAB PO SCH (08:28)
[2023-08-14] MEDS: buPROPion XL 300 MG TABCR PO SCH (08:28)
[2023-08-14] MEDS: EMPAGLIFLOZIN 10 MG TAB PO SCH (08:29)
[2023-08-14] MEDS: FUROSEMIDE 40 MG/4 ML VIAL IV SCH (08:29)
[2023-08-14] MEDS: METOPROLOL SUCC 50MG EXT REL TAB PO SCH (08:29)
[2023-08-14] MEDS: LANTUS PER UNIT CHARGE SQ SCH (08:30)
[2023-08-14] MEDS: INSULIN ASPART PER UNIT CHARGE SC SCH (08:31)
--- NOTE | 2023-08-14 08:44 | XRay Report ---
XR chest 1V portable CLINICAL HISTORY: Dyspnea COMPARISON STUDY: Chest radiograph July 15, 2023. FINDINGS: Right shoulder arthroplasty, median sternotomy wires, mediastinal surgical clips and a pros thetic cardiac valve are noted. Cardiomegaly is unchanged. There is no evidence for pulmonary edema. No consolidation is identified. A hiatal hernia is again noted IMPRESSION: No acute cardiopulmonary findings. No change in appearance of the chest. ACT 112: Negative or not required by law. Electronically signed by: Den Monzon M.D. 08/14/2023 8:42 AM
[2023-08-14] MEDS ORDERED: ERYTHROMYCIN OP OINT 5 MG/GM 3.5 GM TUBE OP SCH (09:00)
--- NOTE | 2023-08-14 13:26 | Electrocardiogram Report ---
Test Reason : Blood Pressure : / mmHG Vent. Rate : 082 BPM Atrial Rate : 082 BPM P-R Int : 160 ms QRS Dur : 076 ms QT Int : 400 ms P-R-T Axes : 052 000 009 degrees QTc Int : 467 ms Normal sinus rhythm Nonspecific ST abnormality Abnormal ECG When compared with ECG of 15-JUL-2023 16:30, No significant change was found Confirmed by Damaso Palma ([id number]) on 08/14/2023 1:25:44 PM Referred By: Zion Kelley Confirmed By:Damaso Palma
--- NOTE | 2023-08-14 15:36 | Hospitalist Progress Note ---
Date of Service August 14, 2023 Assessment & Plan (1) BOSS (dyspnea on exertion): Plan: 68yo female presenting with progressive bilateral LE edema, BOSS and weight gain despite increased dose of PO diuretics outpatient. Patient did not appear to be severely volume overloaded but she does have some edema as well as elevation of BNP to 791. Weight is slightly up from prior Suspect findings are secondary to thyroid dysfunction - patient with history of thyroid cancer s/p thyroidectomy with post-surgical hypothyroidism on Synthroid -Continue IV diuresis with Lasix 40mg IV BID -Monitor weights, intake and output and clinical response Patient is 1.4 L negative and lost 1 kg in weight in 1 day of IV Lasix (2) Influenza A: Plan: Patient afebrile, adeequate oxygenation on room air -Isolation precautions -Will not start Tamiflu - uncertain when symptoms of influenza began -Symptomatic management - Tylenol PRN (3) Hypothyroidism (acquired): Plan: Chronic. Patient with history of papillary thyroid cancer s/p thyroidectomy. TSH last low at 0.094 on 07/27/23 with normal T4 at 1.13 -Repeat TSH 1.2. Goal for low TSH given history of thyroid cancer. Patient follows with Endocrinology - goal TSH is closer to 1 -Continue Synthroid (4) Paroxysmal atrial fibrillation: Plan: Rate controlled, NSR -Continue Coumadin -Contiue Metoprolol -Monitor daily INR. INR is 1.9 (5) Diabetes: Plan: Chronic -Continue insulin - Lantus 7u BID with ISS -Continue Jardiance -Goal blood sugar 110 - 140 Admission and Anticipated Discharge Date Admission Date: August 13, 2023 Subjective Patient feels better overall. Review of Systems Review of Systems: All systems reviewed & are unremarkable except as noted in Subjective Physical Exam Physical Exam: General: Awake, conversant Heart: S1, S2/regular rate and rhythm, no murmur rubs or gallops Lungs: Mild bilateral crackles. Normal effort Abdomen: Soft/nontender/nondistended. No hepatosplenomegaly Extremities: No clubbing/cyanosis. Trace bilateral edema Behavior: Appropriate, cooperative Results & Data Results & Data Vital Signs (Past 12 Hours) Vital Signs Temp Pulse Resp BP Pulse Ox O2 Del Method 08/14/23 14:30 37.3 C 75 16 136/86 95 Room Air 08/14/23 11:11 Room Air 08/14/23 07:35 36.7 C 76 18 155/81 H 96 Room Air Laboratory Results Abnormal lab results 08/13/23 08/13/23 08/13/23 Range/Units 18:33 18:34 19:35 RBC 3.77 L (4.20-5.40) M/uL Hgb 10.9 L (12.0-16.0) g/dl Hct (37.0-47.0) % MCHC 29.0 L (32.0-36.0) g/dL RDW Std Deviation 67.4 H (36.4-46.3) fL RDW Coeff of Emily 18.6 H (11.5-14.5) % Plt Count 439 H (130-400) K/uL MPV 9.1 L (9.4-12.4) fL Immature Gran # (Auto) 0.32 H (0.01-0.20) K/uL Absolute Nucleated RBC 0.21 H (0.00-0.12) K/uL PT 19.6 H (9.0-12.0) Seconds INR 1.9 H (0.9-1.1) Sodium 147 H (136-145) mmol/L Chloride 108 H (98-107) mmol/L Carbon Dioxide (21-32) mmol/L BUN 24 H (6-23) mg/dl BUN/Creatinine Ratio 22.6 H (10-20) Glucose 107 H (70-99(Fasting)) mg/dl POC Glucose (70-99) mg/dl Calcium (8.6-10.3) mg/dl Alkaline Phosphatase 115 H (34-104) U/L Troponin I High Sens 22.1 H (0-14) pg/ml B-Natriuretic Peptide 791 H (0-100) pg/ml Urine Protein Trace H (Negative) Urine Glucose (UA) 3+ H (Negative) Urine Ketones Trace H (Negative) Ur Leukocyte Esterase Trace H (Negative) Urine WBC (Auto) 10-30 H (0-5) /hpf U Epithel Cells (Auto) >30 H (0-5) /lpf Nasal Influ A H1 2008 PCR DETECTED A (NotDetected) 08/13/23 08/14/23 08/14/23 Range/Units 21:01 07:20 07:38 RBC 3.34 L (4.20-5.40) M/uL Hgb 9.6 L (12.0-16.0) g/dl Hct 32.8 L (37.0-47.0) % MCHC 29.3 L (32.0-36.0) g/dL RDW Std Deviation 65.3 H (36.4-46.3) fL RDW Coeff of Emily 18.4 H (11.5-14.5) % Plt Count 404 H (130-400) K/uL MPV 8.9 L (9.4-12.4) fL Immature Gran # (Auto) (0.01-0.20) K/uL Absolute Nucleated RBC (0.00-0.12) K/uL PT (9.0-12.0) Seconds INR (0.9-1.1) Sodium (136-145) mmol/L Chloride (98-107) mmol/L Carbon Dioxide 33 H (21-32) mmol/L BUN (6-23) mg/dl BUN/Creatinine Ratio 24.7 H (10-20) Glucose 122 H (70-99(Fasting)) mg/dl POC Glucose 124 H (70-99) mg/dl Calcium 8.5 L (8.6-10.3) mg/dl Alkaline Phosphatase (34-104) U/L Troponin I High Sens 20.2 H (0-14) pg/ml B-Natriuretic Peptide (0-100) pg/ml Urine Protein (Negative) Urine Glucose (UA) (Negative) Urine Ketones (Negative) Ur Leukocyte Esterase (Negative) Urine WBC (Auto) (0-5) /hpf U Epithel Cells (Auto) (0-5) /lpf Nasal Influ A H1 2008 PCR (NotDetected) 08/14/23 Range/Units 11:30 RBC (4.20-5.40) M/uL Hgb (12.0-16.0) g/dl Hct (37.0-47.0) % MCHC (32.0-36.0) g/dL RDW Std Deviation (36.4-46.3) fL RDW Coeff of Emily (11.5-14.5) % Plt Count (130-400) K/uL MPV (9.4-12.4) fL Immature Gran # (Auto) (0.01-0.20) K/uL Absolute Nucleated RBC (0.00-0.12) K/uL PT (9.0-12.0) Seconds INR (0.9-1.1) Sodium (136-145) mmol/L Chloride (98-107) mmol/L Carbon Dioxide (21-32) mmol/L BUN (6-23) mg/dl BUN/Creatinine Ratio (10-20) Glucose (70-99(Fasting)) mg/dl POC Glucose 123 H (70-99) mg/dl Calcium (8.6-10.3) mg/dl Alkaline Phosphatase (34-104) U/L Troponin I High Sens (0-14) pg/ml B-Natriuretic Peptide (0-100) pg/ml Urine Protein (Negative) Urine Glucose (UA) (Negative) Urine Ketones (Negative) Ur Leukocyte Esterase (Negative) Urine WBC (Auto) (0-5) /hpf U Epithel Cells (Auto) (0-5) /lpf Nasal Influ A H1 2008 PCR (NotDetected) PG Care Time/CCT Total # of Minutes Spent Total Time Spent with Patient: Total time spent is greater than 50% in coordination of care (as documented) at patient's floor/unit and/or counseling patient: Coding Level of Care Code 86883 SUB INP/OBS CARE 2/35MIN Diagnoses BOSS (dyspnea on exertion) R06.09 Influenza A J10.1 Hypothyroidism (acquired) E03.9 Paroxysmal atrial fibrillation I48.0 Diabetes E11.9
[2023-08-14 18:10] LABS: BUN Creatinine Ratio 20.7 (10-20); Calcium 8.6 mg/dl (8.6-10.3); Creatinine Clr Calc Pharmacy 32.8 ml/min; Est GFR (African American) 44.9 ml/min; Est GFR (Non-African American) 38.8 ml/min
[2023-08-14] MEDS: ATORVASTATIN 10 MG TAB PO SCH (20:21)
[2023-08-14] MEDS: FLUTICASONE PROPIONATE NA SPR 16 GM BTL SCH (22:11)
[2023-08-15 06:29] LABS: BUN Creatinine Ratio 29.2 (10-20); Calcium 8.7 mg/dl (8.6-10.3); Creatinine Clr Calc Pharmacy 43.1 ml/min; Est GFR (African American) 62.9 ml/min; Est GFR (Non-African American) 54.3 ml/min; Potassium 3.9 mmol/L (3.5-5.1)
[2023-08-15 06:32] LABS: INR 2.3 (0.9-1.1); Prothrombin Time 23.8 Seconds (9.0-12.0)
[2023-08-15] MEDS: guaiFENesin 600 MG TABCR PO SCH (08:39)
[2023-08-15] MEDS: BENZONATATE 100 MG CAPSULE PO PRN (08:39)
--- NOTE | 2023-08-15 12:56 | XCELERA ---
[id number]
--- NOTE | 2023-08-15 16:22 | Hospitalist Progress Note ---
Date of Service August 15, 2023 Assessment & Plan (1) BOSS (dyspnea on exertion): Plan: 68yo female presenting with progressive bilateral LE edema, BOSS and weight gain despite increased dose of PO diuretics outpatient. Patient did not appear to be severely volume overloaded but she does have some edema as well as elevation of BNP to 791. Weight is slightly up from prior Suspect findings are secondary to thyroid dysfunction - patient with history of thyroid cancer s/p thyroidectomy with post-surgical hypothyroidism on Synthroid -Continue IV diuresis with Lasix 40mg IV BID -Monitor weights, intake and output and clinical response Patient continues to lose weight. Today down by 0.6 kg Continues to be net negative I/O (2) Influenza A: Plan: Patient afebrile, adeequate oxygenation on room air -Isolation precautions -Will not start Tamiflu - uncertain when symptoms of influenza began -Symptomatic management - Tylenol PRN (3) Hypothyroidism (acquired): Plan: Chronic. Patient with history of papillary thyroid cancer s/p thyroidectomy. TSH last low at 0.094 on 07/27/23 with normal T4 at 1.13 -Repeat TSH 1.2. Goal for low TSH given history of thyroid cancer. Patient follows with Endocrinology - goal TSH is closer to 1 -Continue Synthroid (4) Paroxysmal atrial fibrillation: Plan: Rate controlled, NSR -Continue Coumadin -Contiue Metoprolol -Monitor daily INR. INR is 2.3 (5) Diabetes: Plan: Chronic -Continue insulin - Lantus 7u BID with ISS -Continue Jardiance -Goal blood sugar 110 - 140 Admission and Anticipated Discharge Date Admission Date: August 13, 2023 Subjective Patient feels well overall. Breathing better. Coughing less. Leg swelling has improved. Review of Systems Review of Systems: All systems reviewed & are unremarkable except as noted in Subjective Physical Exam Physical Exam: General: Awake, conversant Heart: S1, S2/regular rate and rhythm, no murmur rubs or gallops Lungs: Mild bilateral crackles. Normal effort Abdomen: Soft/nontender/nondistended. No hepatosplenomegaly Extremities: No clubbing/cyanosis. Trace bilateral edema Behavior: Appropriate, cooperative Results & Data Results & Data Vital Signs (Past 12 Hours) Vital Signs Temp Pulse Resp BP Pulse Ox O2 Del Method 08/15/23 16:06 36.5 C 68 16 132/81 95 Room Air 08/15/23 11:24 Room Air 08/15/23 07:33 36.6 C 73 16 139/85 95 Room Air Laboratory Results Abnormal lab results 08/14/23 08/14/23 08/15/23 Range/Units 17:36 20:14 05:48 PT 23.8 H (9.0-12.0) Seconds INR 2.3 H (0.9-1.1) BUN 29 H 31 H (6-23) mg/dl Creatinine 1.40 H D (0.6-1.2) mg/dl BUN/Creatinine Ratio 20.7 H 29.2 H (10-20) Glucose 153 H (70-99(Fasting)) mg/dl POC Glucose 157 H (70-99) mg/dl 08/15/23 08/15/23 Range/Units 07:33 11:23 PT (9.0-12.0) Seconds INR (0.9-1.1) BUN (6-23) mg/dl Creatinine (0.6-1.2) mg/dl BUN/Creatinine Ratio (10-20) Glucose (70-99(Fasting)) mg/dl POC Glucose 166 H 131 H (70-99) mg/dl PG Care Time/CCT Total # of Minutes Spent Total Time Spent with Patient: Total time spent is greater than 50% in coordination of care (as documented) at patient's floor/unit and/or counseling patient: Coding Level of Care Code 97998 SUB INP/OBS CARE 2/35MIN Diagnoses BOSS (dyspnea on exertion) R06.09 Influenza A J10.1 Hypothyroidism (acquired) E03.9 Paroxysmal atrial fibrillation I48.0 Diabetes E11.9
[2023-08-16 06:49] LABS: INR 2.2 (0.9-1.1); Prothrombin Time 23.1 Seconds (9.0-12.0)
[2023-08-16 09:44] LABS: Anion Gap 5 (3-11); BUN Creatinine Ratio 30.8 (10-20); Blood Urea Nitrogen 36 mg/dl (6-23); Calcium 8.5 mg/dl (8.6-10.3); Carbon Dioxide 33 mmol/L (21-32); Chloride 106 mmol/L (98-107); Creatinine Clr Calc Pharmacy 38.9 ml/min; Est GFR (African American) 55.8 ml/min; Est GFR (Non-African American) 48.2 ml/min; Glucose 83 mg/dl (70-99(Fasting)); Sodium 144 mmol/L (136-145)
[2023-08-16] MEDS: FUROSEMIDE 80 MG TAB PO SCH (14:19)
--- NOTE | 2023-08-16 14:36 | Hospitalist Progress Note ---
Date of Service August 16, 2023 Assessment & Plan (1) BOSS (dyspnea on exertion): Plan: 68yo female presenting with progressive bilateral LE edema, BOSS and weight gain despite increased dose of PO diuretics outpatient. Patient did not appear to be severely volume overloaded but she does have some edema as well as elevation of BNP to 791. 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 Switch to home dose of 80 mg p.o. Lasix -Monitor weights, intake and output and clinical response Patient continues to lose weight. Continues to be net negative I/O (2) Influenza A: Plan: Patient afebrile, adeequate oxygenation on room air -Isolation precautions -Will not start Tamiflu - uncertain when symptoms of influenza began -Symptomatic management - Tylenol PRN (3) Hypothyroidism (acquired): Plan: Chronic. Patient with history of papillary thyroid cancer s/p thyroidectomy. TSH last low at 0.094 on 07/27/23 with normal T4 at 1.13 -Repeat TSH 1.2. Goal for low TSH given history of thyroid cancer. Patient follows with Endocrinology - goal TSH is closer to 1 -Continue Synthroid (4) Paroxysmal atrial fibrillation: Plan: Rate controlled, NSR -Continue Coumadin -Contiue Metoprolol -Monitor daily INR. INR is 2.2 (5) Diabetes: Plan: Chronic -Continue insulin - Lantus 7u BID with ISS -Continue Jardiance -Goal blood sugar 110 - 140 Plan Likely discharge tomorrow 08/16 Admission and Anticipated Discharge Date Admission Date: August 13, 2023 Subjective Patient feels well today. Denies chest pain or shortness of breath. Cough has resolved. Leg swelling has come down. Review of Systems Review of Systems: All systems reviewed & are unremarkable except as noted in Subjective Physical Exam Physical Exam: General: Awake, conversant Heart: S1, S2/regular rate and rhythm, no murmur rubs or gallops Lungs: Clear to auscultation bilaterally. No crackles heard today. Normal effort Abdomen: Soft/nontender/nondistended. No hepatosplenomegaly Extremities: No clubbing/cyanosis. Trace bilateral edema Behavior: Appropriate, cooperative Results & Data Results & Data Vital Signs (Past 12 Hours) Vital Signs Temp Pulse Resp BP Pulse Ox O2 Del Method 08/16/23 10:20 Room Air 08/16/23 07:29 36.4 C L 71 16 130/78 96 Room Air Laboratory Results Abnormal lab results 08/15/23 08/15/23 08/16/23 Range/Units 16:22 20:24 05:53 PT 23.1 H (9.0-12.0) Seconds INR 2.2 H (0.9-1.1) Carbon Dioxide (21-32) mmol/L BUN (6-23) mg/dl BUN/Creatinine Ratio (10-20) POC Glucose 109 H 145 H (70-99) mg/dl Calcium (8.6-10.3) mg/dl 08/16/23 08/16/23 Range/Units 07:45 08:46 PT (9.0-12.0) Seconds INR (0.9-1.1) Carbon Dioxide 33 H (21-32) mmol/L BUN 36 H (6-23) mg/dl BUN/Creatinine Ratio 30.8 H (10-20) POC Glucose 113 H (70-99) mg/dl Calcium 8.5 L (8.6-10.3) mg/dl PG Care Time/CCT Total # of Minutes Spent Total Time Spent with Patient: Total time spent is greater than 50% in coordination of care (as documented) at patient's floor/unit and/or counseling patient: Coding Level of Care Code 51588 SUB INP/OBS CARE 2/35MIN Diagnoses BOSS (dyspnea on exertion) R06.09 Influenza A J10.1 Hypothyroidism (acquired) E03.9 Paroxysmal atrial fibrillation I48.0 Diabetes E11.9
[2023-08-16 19:58] LABS: C Reactive Protein < 0.50 mg/dl (0-0.5)
[2023-08-17 06:09] LABS: Hematocrit (blood only) 35.9 % (37.0-47.0); Hemoglobin 10.3 g/dl (12.0-16.0); Mean Corpuscular Hemoglobin 28.4 pg (25.0-34.0); Mean Corpuscular Hgb Conc 28.7 g/dL (32.0-36.0); Mean Corpuscular Volume 98.9 fL (80.0-100.0); Mean Platelet Volume 8.6 fL (9.4-12.4); Nucleated RBC # (auto) 0.05 K/uL (0.00-0.12); Nucleated RBC % (auto) 0.6 %; Platelet Count 525 K/uL (130-400); RDW Coefficient of Variation 18.5 % (11.5-14.5); RDW Standard Deviation 65.7 fL (36.4-46.3); Red Blood Count 3.63 M/uL (4.20-5.40); White Blood Count 7.99 K/ul (4.8-10.8)
[2023-08-17 06:19] LABS: Anion Gap 8 (3-11); BUN Creatinine Ratio 32.8 (10-20); Blood Urea Nitrogen 39 mg/dl (6-23); C Reactive Protein < 0.50 mg/dl (0-0.5); Calcium 8.5 mg/dl (8.6-10.3); Carbon Dioxide 30 mmol/L (21-32); Chloride 106 mmol/L (98-107); Creatinine Clr Calc Pharmacy 38.2 ml/min; Est GFR (African American) 54.7 ml/min; Est GFR (Non-African American) 47.2 ml/min; Glucose 94 mg/dl (70-99(Fasting)); Potassium 3.6 mmol/L (3.5-5.1); Sodium 144 mmol/L (136-145)
[2023-08-17 06:34] LABS: Prothrombin Time 21.4 Seconds (9.0-12.0)
--- NOTE | 2023-08-17 11:30 | Communication Note ---
acute on chronic HFpEF Pt presented with LE edema, wt gain and elevated BNP but felt to be related to hypothyroidism. ECHO with EF 55-60%, BNP 791 Treatment: initially IV lasix bid now switched to po, monitor wts, I/O, daily wts, Risk Factor(s): age, PAF, DM, CHF, CVA, CKD
--- NOTE | 2023-08-17 11:36 | Discharge Summary ---
Date of Service August 17, 2023 Admission HPI Per Admitting Provider Marry Horowitz is a 68yo female with multiple medical comorbidities presenting with weight gain and edems of legs, hands and face. Patient has been taking double lasix dosing for the last several 4-5 days. She has gained 7-9 pounds. She reports no change in diet. She is compliant with her medications and low salt intake. She does not report any change in UOP with increased diuretic No cough, SOB or orthopnea. She does report BOSS Recently diagnosed with RSV. Patient reports significant cough with that illness. Her symptoms somewhat improved until recently when she developed worsening cough. She has had fatigue as well as muscle pain In the ER she is afebrile, HD stable ER Course: Lasix 40mg IV Coumadin 4.5mg Principal Diagnosis Acute on chronic diastolic CHF Discharge Exam General: Awake, conversant Heart: S1, S2/regular rate and rhythm, no murmur rubs or gallops Lungs: Clear to auscultation bilaterally. No crackles heard today. Normal effort Abdomen: Soft/nontender/nondistended. No hepatosplenomegaly Extremities: No clubbing/cyanosis. Trace bilateral edema Behavior: Appropriate, cooperative Discharge Data Allergies Allergy/AdvReac Type Severity Reaction Status Date / Time ARB-Angiotensin Receptor AdvReac Severe hyperkalemi Verified 08/10/23 18:53 Antagonist a sulfamethoxazole AdvReac Intermediate Kidney Verified 08/10/23 17:22 [From Bactrim] failure trimethoprim [From Bactrim] AdvReac Intermediate Kidney Verified 08/10/23 17:22 failure doxycycline AdvReac Verified 08/10/23 17:22 Consultations 08/13/23 20:48 ED Decision to Admit Stat Hospital Course (1) BOSS (dyspnea on exertion): acute on chronic HFpEF 68yo female presenting with progressive bilateral LE edema, BOSS and weight gain despite increased dose of PO diuretics outpatient. Patient did not appear to be severely volume overloaded but she does have some edema as well as elevation of BNP to 791. 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 Switch to home dose of 80 mg p.o. Lasix -Monitor weights, intake and output and clinical response Patient continues to lose weight. Continues to be net negative I/O Patient will be discharged on 08/16. Will have patient followup with CHF heart failure clinic. Will resume home meds. (2) Influenza A: Patient afebrile, adeequate oxygenation on room air -Isolation precautions -Will not start Tamiflu - uncertain when symptoms of influenza began -Symptomatic management - Tylenol PRN (3) Hypothyroidism (acquired): Chronic. Patient with history of papillary thyroid cancer s/p thyroidectomy. TSH last low at 0.094 on 07/27/23 with normal T4 at 1.13 -Repeat TSH 1.2. Goal for low TSH given history of thyroid cancer. Patient follows with Endocrinology - goal TSH is closer to 1 -Continue Synthroid (4) Paroxysmal atrial fibrillation: Rate controlled, NSR -Continue Coumadin -Contiue Metoprolol -Monitor daily INR. INR is 2.2 (5) Diabetes: Chronic -Continue insulin - Lantus 7u BID with ISS -Continue Jardiance -Goal blood sugar 110 - 140 Total Time Total Time Spent Total Time Spent (In Minutes): 32 Discharge Plan Discharge Items Patient Disposition: Personal [facility] Reason For Visit: WEIGHT GAIN Discharge Diagnosis: acute on chornic diastolic heart failure Activity: Resume your previous activity Non-emergency contact: Primary Care Provider Call non-emergency contact if: you have any medication questions Follow-up/Referrals: Zion Kelley DO [Primary Care Provider] - Diet: Low Sodium (2gm) Addtl Attending Provider Instructions: Call your Primary Care doctor if any of the following symptoms or problems start or get worse: * Shortness of breath or difficulty breathing * Wake up at night short of breath * Chest pain * Cough * Swelling of your hands, feet, or legs * More fatigued or tired with your normal activity * Palpitations - sudden fast heart beats WEIGHT * Weigh yourself every morning after using the bathroom. * Use the same scale. * Wear the same amount of clothing. * Write your weight down on a chart. * Call your Primary Care doctor if you gain more than 2-3 pounds in 1-2 days. MEDICATIONS * Use this discharge instruction sheet for medication instructions. * Take your medications at the time your doctor ordered. * Do not skip a dose of your medicines. * If you miss a dose of medicine, take it as soon as possible, but DO NOT DOUBLE A DOSE. * Read your medicine information when you get home. * Know all of the side effects of your medicine. If in doubt, ask your pharmacist * Call your Primary Care doctor's office if you have any side effects. * Be sure all of your doctors know what medicine and herbs you take (including cold, flu, and herbal medicine). Take the following with you to your follow-up doctor appointments: * Weight Chart * Medication List * List of questions Do not drink excessive alcohol, beer or wine. Recommend followup with PCP in 1-2 weeks. Pending Studies at Discharge: No Stand-Alone Forms: My [employer], Smoking Cessation Skilled Items Patient informed of condition?: Yes DNR: No Discharge Level of Care: Skilled Communicable Disease: No Discharge Prognosis: Stable Lines: None Urinary Catheter: No Medications and DC Order Prescriptions: Continued warfarin 3 mg tablet See Rx Instructions PO .COMPLEX Rx Instructions: 4.5mg every Wednesday, Wednesday, Wednesday and 3mg x 4 days or UD per [facility] orally; metformin 500 mg tablet 500 mg PO BID Qty: 60 3RF metoprolol succinate 50 mg tablet extended release 24 hr 50 mg PO BID Qty: 60 3RF atorvastatin 10 mg tablet 10 mg PO QPM Qty: 30 3RF bupropion HCl 300 mg tablet extended release 24 hr 300 mg PO QAM Qty: 30 3RF calcium carbonate [Tums E-X] 300 mg (750 mg) tablet,chewable 600 mg PO BID Thyrogen 0.9 mg recon soln 0.9 mg IM DAILY Qty: 2 0RF Rx Instructions: pt denies knowing this med or recollection of having it levothyroxine 100 mcg tablet 100 mcg PO DAILYBB erythromycin 5 mg/gram (0.5 %) ointment 1 cm ophthalmic (eye) TID Rx Instructions: apply 1 cm ribbon into the conjuctival sac of affected eye furosemide [Lasix] 40 mg tablet 80 mg PO DAILY citalopram 20 mg tablet 20 mg PO QAM aripiprazole 2 mg tablet 2 mg PO QAM Jardiance 10 mg tablet 10 mg PO QAM aspirin 81 mg tablet,chewable 81 mg PO QAM Myrbetriq 25 mg tablet extended release 24 hr 50 mg PO QAM omeprazole 40 mg capsule,delayed release(DR/EC) 40 mg PO DAILYBB insulin lispro [Humalog KwikPen Insulin] 100 unit/mL insulin pen 5 unit subcut .TIDM PLUS SS Rx Instructions: Hold if bsg below 100, 200-250=2units, 251-300= 4 units, 301-350=6units, >351=8units insulin glargine [Lantus Solostar U-100 Insulin] 100 unit/mL (3 mL) insulin pen 15 unit subcut AMPM multivitamin Tablet 1 tab PO QAM Discharge Orders: Discharge Order- CHF (Routine); Ordered 08/17/23 Ordered By: Jaxon Currie Admission Data Admit Date/Time: 08/16/23 14:35 Attending Provider: Jaxon Currie Admit Provider: Isaura Pierce Primary Care Provider: Zion Kelley Other Providers: Isaura Pierce; Jasmin Melvin Coding Level of Care Code 72711 INP/OBS DISCH >30 MIN Diagnoses BOSS (dyspnea on exertion) R06.09 Influenza A J10.1 Hypothyroidism (acquired) E03.9 Paroxysmal atrial fibrillation I48.0 Diabetes E11.9
== END 2023-08-17 13:45 | disposition home or self-care (01) | DRG 643 ==
LOC: ED 18:06 → 3E 18:06 → SUATTDRO 22:24 → 3E 08-14 → SUATTDRO 08-16 14:35